=== PATIENT | male | born 1970 | race Two or more races ===

== ENCOUNTER 2022-12-06 16:51 | Emergency (ER) | payer OTHER ==
[~2022-12-06] VITALS: Ht 175.3 cm; Wt 136.1 kg
[2022-12-06] MEDS ORDERED: AVAPRO150 MG (17:01)
[2022-12-06] MEDS ORDERED: LABETALOL HCL100 MG (17:01)
== END 2022-12-06 20:21 | disposition home or self-care (01) ==
LOC: ER 16:51
DX: M62.830 Muscle spasm of back (principal)